=== PATIENT | female | born 1960 | race African-American/Black ===

== ENCOUNTER → 2019-06-19 | Outpatient (CLI) | payer OTHER ==
--- NOTE | 2019-06-19 15:30 | RADIOLOGY REPORT (SQ) ---
EXAM DESCRIPTION: BARIUM SWALLOW ESOPHAGUS COMPLETED DATE/TIME: 06/19/2019 9:01 am REASON FOR STUDY: R13.10 DYSPHAGIA, UNSPECIFIED R13.10 DYSPHAGIA, UNSPECIFIED COMPARISON: None. TECHNIQUE: Under fluoroscopic guidance, patient ingested effervescent granules followed by thick and thin barium. Fluoroscopic spot images and routine radiographic images acquired and stored on PACS. 12 MM BARIUM TABLET GIVEN: No, patient was unable swallow tablet. LIMITATIONS: None. FLUOROSCOPY TIME: FLUORO TIME: 2.9 minutes 7 images saved to PACS. FINDINGS: NEUROMUSCULAR COORDINATION OF SWALLOW: Aspiration was seen during the study ESOPHAGEAL MOTILITY: Normal peristalsis. No esophageal spasm. ESOPHAGEAL MUCOSA: Persistent mild narrowing of the upper esophagus. Normal mucosa without masses or ulceration. GASTRO-ESOPHAGEAL JUNCTION: No hiatal hernia. Mild gastroesophageal reflux seen. NON-GI TRACT STRUCTURES: No significant finding. OTHER: No other significant finding. IMPRESSION: PERSISTENT NARROWING OF THE UPPER ESOPHAGUS. TRACHEAL ASPIRATION IDENTIFIED. MILD INGE ROESOPHAGEAL REFLUX. RECOMMENDATION: Upper endoscopy recommended for further evaluation. COMMENT: None Quality ID 145: Final reports for procedures using fluoroscopy that document radiation exposure dillon miguel, or exposure time and number of fluorographic images (if radiation exposure indices are not avail able) TECHNICAL DOCUMENTATION: JOB ID: [id number] [employer]- All Rights Reserved Reading location - IP/workstation name: [email or web address] [email or web address]
== END ==
LOC: RAD 08:20
PROVIDERS: ATTEND Internal Medicine Gastroenterology
DX: K21.9 Gastro-esophageal reflux disease without esophagitis (principal); R13.10 Dysphagia, unspecified
CPT/HCPCS: 74220

== ENCOUNTER → 2019-07-25 | Outpatient (CLI) | payer OTHER ==
--- NOTE | 2019-07-25 14:00 | WOMENS IMAGING REPORT ---
EXAM DESCRIPTION: BILAT SCREENING MAMMO W/CAD COMPLETED DATE/TIME: 07/25/2019 12:07 pm REASON FOR STUDY: Z12.31 SCREENING MAMMO Z12.31 ENCNTR SCREEN MAMMOGRAM FOR MALIGNANT NEOPLASM OF B RE COMPARISON: 12/03/2015 and 01/21/2010. EXAM PARAMETERS: Standard craniocaudal and mediolateral oblique views of each breast recorded using digital acquisition. Read with the assistance of CAD. .[facility] - [employer] Mechanic Supervisor Version 9.2 LIMITATIONS: None. FINDINGS: No suspicious masses, suspicious calcifications or architectural distortion. No areas of c oncern. IMPRESSION: Negative MAMMOGRAM. BIRADS 1 BREAST DENSITY: b. There are scattered areas of fibroglandular density. BIRAD: ASSESSMENT: 1 NEGATIVE RECOMMENDATION: ROUTINE SCREENING COMMENT: The patient has been notified of the results by letter per MQSA requirements. Additional no tification policies are in place for contacting patient with suspicious or incomplete findings. Quality ID #225: The [employer] recommends an annual screening mammogram for women aged 40 years or over. This facility utilizes a reminder system to ensure that all patients receive reminder letters, and/or direct phone calls for appointments. This includes reminders for routine scr eening mammograms, diagnostic mammograms, or other Breast Imaging Interventions when appropriate. Th is patient will be placed in the appropriate reminder system. TECHNICAL DOCUMENTATION: FINDING NUMBER: (1) ASSESSMENT: (1) JOB ID: [id number] [employer]- All Rights Reserved Reading location - IP/workstation name: [email or web address]
== END ==
LOC: WI 11:40
PROVIDERS: ATTEND Internal Medicine Geriatric Medicine
DX: Z12.31 Encounter for screening mammogram for malignant neoplasm of breast (principal)
CPT/HCPCS: 77067

== ENCOUNTER → 2019-08-26 | Outpatient (CLI) | payer OTHER ==
--- NOTE | 2019-08-26 13:18 | RADIOLOGY REPORT (SQ) ---
EXAM DESCRIPTION: CT SOFT TISSUE NECK WITH COMPLETED DATE/TIME: 08/26/2019 11:08 am REASON FOR STUDY: R13.12 DYSPHAGIA, OROPHARYNGEAL PHASE R13.12 DYSPHAGIA, OROPHARYNGEAL PHASE COMPARISON: None. TECHNIQUE: Post IV contrasted scanning from skull base through lung apices with review of bone, soft tissue and lung windows. Reconstructed coronal and sagittal MPR images reviewed. All images stored on PACS. All CT scanners at this facility use dose modulation, iterative reconstruction, and/or weight based d osing when appropriate to reduce radiation dose to as low as reasonably achievable (ALARA). [facility]: Dose Right [facility]: CareDose [facility]: Dose Right [facility]: Teradose 4D [facility]: [place] CONTRAST TYPE AND DOSE: contrast/concentration: Isovue 350.00 mg/ml; Total Contrast Delivered: 75.0 ml; Total Saline Delivered: 55.0 ml RENAL FUNCTION: Creatinine 0.7 RADIATION DOSE: 19.4 mGy . LIMITATIONS: None. FINDINGS: A 2.6 cm craniocaudad by 2 cm AP x 1.5 cm transverse left supraglottic laryngeal mass is p resent along the left epiglottis and aryepiglottic fold. This is best shown on axial images 37-47. Extension from the superior tip of the epiglottis down to the left arytenoid cartilage is best shown on sagittal image 53. This tumor crosses midline on coronal image 67. Tumor extends inferiorly down to involve at least the laryngeal vestibule. Abnormal contrast thick e nhancement extends down to the arytenoid cartilage on the left. Mild supraglottic airway narrowing. SKULL BASE: Inferior brain parenchyma in the field of view is unremarkable MAJOR SALIVARY GLANDS: No solid or cystic masses. No inflammatory changes. LYMPHADENOPATHY: No adenopathy. There are small (non enlarged by size) cervical lymph nodes as follo ws: 6 mm short axis, submandibular triangle axial image 44 5 mm short axis in the carotid space axial image 39 6 mm short axis left posterior triangle axial image 44 LARYNX/CORDS: As above VASCULAR STRUCTURES: The major vessels are patent. LUNG APICES: Clear. BONES: Multilevel cervical foraminal narrowing from facet and uncovertebral hypertrophy THYROID: Normal size. No masses. PARANASAL SINUSES: Clear. OTHER: No other significant finding. IMPRESSION: 2.6 x 2 x 1.5 cm left supraglottic laryngeal mass. Mild supraglottic airway narrowing. No bulky cervical adenopathy. TECHNICAL DOCUMENTATION: JOB ID: [id number] Quality ID # [id number]: Final reports with documentation of one or more dose reduction techniques (e.g., Au tomated exposure control, adjustment of the mA and/or kV according to patient size, use of iterative reconstruction technique) 2010 [employer]- All Rights Reserved Reading location - IP/workstation name: [email or web address]
== END ==
LOC: RAD 10:07
PROVIDERS: ATTEND Otolaryngology
DX: R13.12 Dysphagia, oropharyngeal phase (principal)
CPT/HCPCS: 70491; 82565

== ENCOUNTER 2019-08-30 05:13 | Day surgery (SDC) | payer OTHER ==
[2019-08-28 10:44] LABS: ABSOLUTE EOSINOPHILS # (AUTO) 0.1 10^3/uL (0.0-0.6); ABSOLUTE LYMPHOCYTES (AUTO) 1.6 10^3/uL (0.5-4.7); ABSOLUTE MONOCYTES (AUTO) 0.5 10^3/uL (0.1-1.4); ABSOLUTE NEUT (AUTO) 2.5 10^3/uL (1.7-8.2); BASOPHILS % (AUTO) 0.7 % (0-2); EOSINOPHILS % (AUTO) 2.4 % (0-6); HEMATOCRIT 39.6 % (36.0-47.0); HEMOGLOBIN 12.8 g/dL (12.0-15.5); LYMPHOCYTES % (AUTO) 34.3 % (13-45); MEAN CORPUSCULAR HEMOGLOBIN 25.1 pg (27.0-33.4); MEAN CORPUSCULAR HGB CONC 32.2 g/dL (32.0-36.0); MEAN CORPUSCULAR VOLUME 78 fl (80-97); MONOCYTES % (AUTO) 10.8 % (3-13); PLATELET COUNT 111 10^3/uL (150-450); RED BLOOD COUNT 5.09 10^6/uL (3.72-5.28); RED CELL DISTRIBUTION WIDTH 16.8 % (11.5-14.0); SEGMENTED NEUTROPHILS % (AUTO) 51.8 % (42-78); TOTAL CELLS COUNTED % (AUTO) 100 %; WHITE BLOOD COUNT 4.7 10^3/uL (4.0-10.5)
[2019-08-28 11:15] LABS: ANION GAP 12 (5-19); BLOOD UREA NITROGEN 15 mg/dL (7-20); CALCIUM 9.3 mg/dL (8.4-10.2); CARBON DIOXIDE 31 mmol/L (22-30); CHLORIDE 96 mmol/L (98-107); GLUCOSE 99 mg/dL (75-110); POTASSIUM 4.5 mmol/L (3.6-5.0)
[~2019-08-30 05:13] MED LIST: CEFAZOLIN SODIUM 2 GM in DEXTROSE 5%-WATER 100 ML IV PRN; LACTATED RINGERS 1000 ML IV PRN; LIDOCAINE 0.5% INJ-PF (5 MG/ML) 50 ML SDV SUBCUT PRN
[2019-08-30] MEDS ORDERED: PROPOFOL INJ 200 MG/20 ML VIAL IV ONE (06:22)
[2019-08-30] MEDS ORDERED: FENTANYL CITRATE INJ/PF 100 MCG/2 ML AMPUL ONE (06:22)
[2019-08-30] MEDS ORDERED: MIDAZOLAM 2 MG/2 ML INJ ONE (06:22)
[2019-08-30] MEDS ORDERED: ONDANSETRON HCL INJ/PF 4 MG/2 ML SDV ONE (06:22)
[2019-08-30] MEDS ORDERED: DEXAMETHASONE SOD PHOSPHATE INJ 4 MG/1 ML VIAL ONE (06:22)
[2019-08-30] MEDS ORDERED: LIDOCAINE 0.5% INJ-PF (5 MG/ML) 50 ML SDV ONE (06:34)
--- NOTE | 2019-08-30 06:51 | EKG REPORT ---
SEVERITY:- NORMAL ECG - SINUS RHYTHM : Confirmed by: Silvano Kang MD 30-Aug-2019 06:50:37
[2019-08-30] MEDS ORDERED: COCAINE HCL 4% TOPICAL SOLN 4 ML ONE (07:05)
[2019-08-30] MEDS ORDERED: TRIAMCINOLONE ACETONIDE INJ 40 MG/1 ML VIAL ONE (07:05)
[2019-08-30] MEDS ORDERED: OXYMETAZOLINE HCL 0.05% NASAL SPRAY 15 ML BOTTLE ONE (07:05)
[2019-08-30] MEDS ORDERED: IPRATROPIUM/ALBUTEROL 0.5-2.5 MG/3 ML AMPUL NEB ONE (07:22)
[2019-08-30] MEDS ORDERED: LIDOCAINE 2% INJ (20 MG/ML) 20 ML MDV ONE (07:25)
[2019-08-30] MEDS ORDERED: ALBUTEROL SULFATE 0.083% NEB 2.5 MG/3 ML AMPUL NEB ONE (07:25)
[2019-08-30] MEDS ORDERED: LABETALOL HCL INJ 20 MG/4 ML DISP.SYRIN IV ONE (08:10)
[2019-08-30] MEDS ORDERED: FENTANYL CITRATE INJ/PF 100 MCG/2 ML AMPUL IV PRN ×3 (08:16)
[2019-08-30] MEDS ORDERED: DIPHENHYDRAMINE HCL 50 MG/ML VIAL IV PRN (08:16)
[2019-08-30] MEDS ORDERED: MEPERIDINE HCL/PF INJ 25 MG/1 ML DISP.SYRIN IV PRN (08:16)
[2019-08-30] MEDS ORDERED: PROMETHAZINE HCL INJ 25 MG/1 ML VIAL IV PRN ×2 (08:16)
[2019-08-30] MEDS ORDERED: ONDANSETRON HCL INJ/PF 4 MG/2 ML SDV IV PRN ×2 (08:16→09:32)
--- NOTE | 2019-08-30 09:46 | Operative Report ---
Operative Report-[facility] Operative Report: Date: 30 August 2019 History: Patient with a history of dysphagia was evaluated in clinic and found to have a ulcerative supraglottic mass mainly involving the epiglottis and aryepiglottic fold on the left side. Presents for a MicroDirect laryngoscopy and biopsy of the supraglottic mass. Informed consent was obtained from the patient Preoperative Diagnosis: Supraglottic mass Postoperative Diagnosis: Same as above Procedure: 1. Micro Direct Laryngoscopy 2. Biopsy of epiglottis, aryepiglottic fold and base of tongue Surgeon: All Javed MD, FACS, [facility] Khanh: NEAL Description of the procedure: After receiving informed consent, the patient was brought to the operating room and placed supine on the operating room table. After successful induction and intubation by anesthesia, the operating room table was turned 90. A head rape was placed. The patient was placed in a sniffing position. A mouthguard was placed to protect the dentition. An operating laryngoscope was placed atraumatically into the laryngeal inlet. The laryngoscope was then placed into suspension. The microscope was brought into the field and the larynx was visualized. An ulcerative mass was noted involving the lingual surface of the epiglottis, left area epiglottic fold, vallecula on the left and extending to the lower portion of the left base of tongue. The mass did extend to the superior portion of the laryngeal surface of the epiglottis on the left side. Cottonoids soaked in 4% cocaine were placed into the laryngeal inlet to cover the vocal cords, prior to initiation of the procedure. Biopsies were taken of the epiglottis, aryepiglottic fold and base of tongue A cottonoid soaked in 4% cocaine was placed over the excision site. Hemostasis was obtained. The patient was taken out of suspension and the laryngoscope removed. The patient was then given back to anesthesia who successfully extubated the patient without any complications. Estimated blood loss: 10 mL Fluids: 500 mL The patient tolerated the procedure well without any complications. The patient was then transported to the post anesthesia care unit in stable condition with spontaneous respirations.
[2019-08-30 10:53] VITALS: BP 129/81
[2019-08-30] MEDS ORDERED: SUCCINYLCHOLINE CHLORIDE INJ 200 MG/10 ML VIAL ONE (13:08)
--- NOTE | 2019-08-30 15:05 | EKG REPORT ---
SEVERITY:- OTHERWISE NORMAL ECG - SINUS RHYTHM : Confirmed by: Silvano Kang MD 30-Aug-2019 15:05:04
== END 2019-08-30 10:45 | disposition home or self-care (01) ==
LOC: OROUT 05:13
PROVIDERS: ATTEND Otolaryngology
DX: C13.1 Malignant neoplasm of aryepiglottic fold, hypopharyngeal aspect (principal); C01 Malignant neoplasm of base of tongue; J38.7 Other diseases of larynx; Z79.899 Other long term (current) drug therapy; F17.210 Nicotine dependence, cigarettes, uncomplicated; R13.12 Dysphagia, oropharyngeal phase; D64.89 Other specified anemias
CPT/HCPCS: 36415; 85025; 80048; 88305 ×2; 93005; 93010; 00320; 31535; J2250; J3490 ×5; J0690; J1100; J3010; J0330; J2405; J7060; J2704; J7620; 320; J3301

== ENCOUNTER → 2019-12-17 | Outpatient (CLI) | payer OTHER ==
--- NOTE | 2019-12-17 16:45 | RADIOLOGY REPORT (SQ) ---
EXAM DESCRIPTION: PET CT SKULL/THIGH COMPLETED DATE/TIME: 12/17/2019 2:58 pm REASON FOR STUDY: THROAT CA (C32.1) C32.1 MALIGNANT NEOPLASM OF SUPRAGLOTTIS COMPARISON: CT SOFT TISSUE NECK 08/26/2019, 10/24/2019 CT CHEST 10/24/2019 RADIONUCLIDE AND DOSE: 8.9 mCi F18 FDG The route of agent administration: Intravenous FASTING BLOOD SUGAR: 86 mg/dl CONTRAST TYPE AND DOSE: No CT contrast given. TECHNIQUE: Blood glucose level was verified. Above dose of FDG was injected intravenously. 2-D seg mented attenuation correction images were obtained from the base of the skull to the midthighs. Nonc ontrast CT images were obtained for attenuation correction and fusion with emission images. CT image s were performed without oral or intravenous contrast and are not sensitive for parenchymal lesions. A series of overlapping emission PET images were obtained. Images reviewed and manipulated at [facility] work station by the radiologist. Images stored on PACS. LIMITATIONS: None. FINDINGS: HEAD AND NECK: Patient is post laryngectomy and tracheostomy. Surgical clips post radical neck dissection. Grafting with a neopharynx surrounded by fat on axial image 30. No increased upta ke over the head or neck worrisome for recurrent malignancy. No adenopathy. CHEST: Tracheostomy in good positioning. No increased metabolic activity at the thoracic inlet. No mediastinal or lung lesions. ABDOMEN AND PELVIS: No areas of abnormal metabolic activity in the abdomen or pelvis. Expected physi ologic activity is present in the genitourinary system and bowel. Non metabolic hepatic cysts, the l argest is 3.3 cm in size posterior right lobe liver. Stones in the gallbladder. G-tube in good posi tioning. PROXIMAL LOWER EXTREMITIES: There is postsurgical change along the left quadriceps muscle, with surgi simi clips and a small seroma on axial images 213-225. No increased metabolic activity in this area. BONES: No abnormal metabolic activity in the visualized skeleton. OTHER: No other significant findings. IMPRESSION: No PET-CT evidence of recurrent laryngeal neoplasm or diffuse widespread metastatic dise ase. TECHNICAL DOCUMENTATION: JOB ID: [id number] 2010 [employer]- All Rights Reserved Reading location - IP/workstation name: [email or web address]
== END ==
LOC: RAD 12:59
PROVIDERS: ATTEND Internal Medicine Hematology & Oncology
DX: C32.1 Malignant neoplasm of supraglottis (principal)
CPT/HCPCS: 78815; A9552

== ENCOUNTER 2020-01-09 08:00 | Day surgery (SDC) | payer OTHER ==
[~2020-01-09 08:00] MED LIST changes: +ACETAMINOPHEN 325 MG TABLET PO PRN; +CEFAZOLIN 1 GM/D5W RTU 1 GM/50 ML RTUPB IV PRN; -CEFAZOLIN SODIUM 2 GM in DEXTROSE 5%-WATER 100 ML IV PRN; -LACTATED RINGERS 1000 ML IV PRN; -LIDOCAINE 0.5% INJ-PF (5 MG/ML) 50 ML SDV SUBCUT PRN
[2020-01-09] MEDS ORDERED: LIDOCAINE 0.5% INJ-PF (5 MG/ML) 50 ML SDV SUBCUT PRN (09:00)
[2020-01-09] MEDS ORDERED: LACTATED RINGERS 1000 ML IV PRN (09:00)
[2020-01-09 09:03] LABS: HEMATOCRIT 34.8 % (36.0-47.0); HEMOGLOBIN 11.4 g/dL (12.0-15.5); MEAN CORPUSCULAR HEMOGLOBIN 23.9 pg (27.0-33.4); MEAN CORPUSCULAR HGB CONC 32.8 g/dL (32.0-36.0); MEAN CORPUSCULAR VOLUME 73 fl (80-97); PLATELET COUNT 151 10^3/uL (150-450); RED BLOOD COUNT 4.76 10^6/uL (3.72-5.28); WHITE BLOOD COUNT 4.9 10^3/uL (4.0-10.5)
--- NOTE | 2020-01-09 09:29 | EKG REPORT ---
SEVERITY:- ABNORMAL ECG - SINUS RHYTHM LOW VOLTAGE IN FRONTAL LEADS NONSPECIFIC T ABNORMALITIES, DIFFUSE LEADS : Confirmed by: Juan Wilson 09-Jan-2020 09:29:36
--- NOTE | 2020-01-09 09:37 | RADIOLOGY REPORT (SQ) ---
EXAM DESCRIPTION: CHEST SINGLE VIEW IMAGES COMPLETED DATE/TIME: 01/09/2020 9:07 am REASON FOR STUDY: preop COMPARISON: Two-view chest 11/02/2015 PET-CT 12/17/2027 EXAM PARAMETERS: NUMBER OF VIEWS: One view. TECHNIQUE: Single frontal radiographic view of the chest acquired. RADIATION DOSE: NA LIMITATIONS: None. FINDINGS: LUNGS AND PLEURA: No opacities, masses or pneumothorax. No pleural effusion. MEDIASTINUM AND HILAR STRUCTURES: No masses. Contour normal. HEART AND VASCULAR STRUCTURES: Heart normal in size. Normal vasculature. BONES: No acute findings. HARDWARE: Tracheostomy tube tip upper trachea. Right and left supraclavicular surgical clips. OTHER: No other significant finding. IMPRESSION: NO ACUTE RADIOGRAPHIC FINDING IN THE CHEST. TECHNICAL DOCUMENTATION: JOB ID: [id number] 2010 [place] 1000[employer]- All Rights Reserved Reading location - IP/workstation name: [id number]
[2020-01-09] MEDS ORDERED: BUPIVACAINE HCL 0.5%-EPI 1:200000 INJ/PF 30 ML VIAL ONE (10:26)
[2020-01-09] MEDS ORDERED: CEFAZOLIN 1 GM/D5W RTU 1 GM/50 ML RTUPB IV ONE (10:27)
[2020-01-09] MEDS ORDERED: FENTANYL CITRATE INJ/PF 100 MCG/2 ML AMPUL ONE (10:33)
[2020-01-09] MEDS ORDERED: PROPOFOL INJ 200 MG/20 ML VIAL IV ONE (10:33)
[2020-01-09] MEDS ORDERED: MIDAZOLAM 2 MG/2 ML INJ ONE (10:33)
[2020-01-09] MEDS ORDERED: MEPERIDINE HCL/PF INJ 25 MG/1 ML DISP.SYRIN IV PRN (11:40)
[2020-01-09] MEDS ORDERED: FENTANYL CITRATE INJ/PF 100 MCG/2 ML AMPUL IV PRN ×3 (11:40)
[2020-01-09] MEDS ORDERED: DIPHENHYDRAMINE HCL 50 MG/ML VIAL IV PRN (11:40)
[2020-01-09] MEDS ORDERED: PROMETHAZINE HCL INJ 25 MG/1 ML VIAL IV PRN (11:40)
--- NOTE | 2020-01-09 12:18 | Operative Report ---
Nonrecallable Operative Report DATE OF SURGERY: 01/09/20 PREOPERATIVE DIAGNOSIS: Laryngeal carcinoma POSTOPERATIVE DIAGNOSIS: Laryngeal carcinoma OPERATION: Port-A-Cath placement left chest SURGEON: GEORGE OCOHA ANESTHESIA: Moderate Sedation TISSUE REMOVED OR ALTERED: None COMPLICATIONS: None ESTIMATED BLOOD LOSS: 10 cc INTRAOPERATIVE FINDINGS: See dictation PROCEDURE: Patient brought to the operating awake alert stable condition placed in the upper table supine position and given IV sedation. After appropriate timeout site verification the procedure commenced. The left chest and neck were prepped and draped in usual sterile fashion. After anesthetizing the skin underneath the left clavi using a 18-gauge needle the left subclavian vein was accessed. Through the needle a wire was placed. This was manipulated to the superior vena cava using fluoroscopy. Then using the tear-away introducer dilator placed over the wire the tract was dilated under direct vision using fluoroscopy. The catheter was then placed through the tear-away introducer confirmed good position using fluoroscopy the tear-away introducer was torn away. Skin incision was made on the left anterior chest wall transversely after anesthetizing the skin with 0.5% lidocaine. A subcutaneous pocket was made with Bovie cautery. Using the tunnel maker supplied with the kit the catheter was tunneled from the subclavian stick site to the pocket. The catheter was then sized appropriately cut and attached to the port with the supplied attachment clip. The port was then irrigated with contrast and flushed easily and it had good position using fluoroscopy. It was then irrigated with heparinized saline solution. The subcutaneous pocket was then closed with 3-0 Vicryl and subcutaneous tissue and then the skin was closed with intracuticular 4-0 Biosyn Steri-Strips completed the procedure. Estimated blood loss was less than 10 cc sponge needle counts were correct and was to the patient was then transferred recovery in stable condition no complications
--- NOTE | 2020-01-09 12:20 | Discharge Summary ---
Discharge Summary (SDC) - Discharge Final Diagnosis: Laryngeal carcinoma Date of Surgery: 01/09/20 Discharge Date: 01/09/20 Condition: Good Referrals: MARY BRISCOE MD [Primary Care Provider] - Discharge Diet: As Tolerated Discharge Activity: Activity As Tolerated Report the Following to Your Physician Immediately: Shortness of Breath - Patient needs a follow-up appointment in surgery clinic in 7 to 10 days, Increase in Pain, Unusual Bleeding
--- NOTE | 2020-01-09 12:54 | RADIOLOGY REPORT (SQ) ---
EXAM DESCRIPTION: CHEST SINGLE VIEW IMAGES COMPLETED DATE/TIME: 01/09/2020 12:35 pm REASON FOR STUDY: POST OP CATH PLACEMENT COMPARISON: PET-CT 12/17/2019 AP chest 01/09/2020 EXAM PARAMETERS: NUMBER OF VIEWS: One view. TECHNIQUE: Single frontal radiographic view of the chest acquired. RADIATION DOSE: NA LIMITATIONS: None. FINDINGS: LUNGS AND PLEURA: No opacities, masses or pneumothorax. No pleural effusion. MEDIASTINUM AND HILAR STRUCTURES: No masses. Contour normal. HEART AND VASCULAR STRUCTURES: Heart normal in size. Normal vasculature. BONES: No acute findings. Old healed left lateral rib fractures HARDWARE: New left subclavian permanent central line tip superior vena cava. Surgical clips in the s upraclavicular regions. Tracheostomy tube tip in the midtrachea OTHER: No other significant finding. IMPRESSION: No pneumothorax post left permanent central line placement with the tip in superior vena cava. TECHNICAL DOCUMENTATION: JOB ID: [id number] 2010 [employer]- All Rights Reserved Reading location - IP/workstation name: [email or web address]
--- NOTE | 2020-01-09 12:55 | RADIOLOGY REPORT (SQ) ---
EXAM DESCRIPTION: FLUORO/CV PLACEMENT IMAGES COMPLETED DATE/TIME: 01/09/2020 12:32 pm REASON FOR STUDY: PORTACATH PLACEMENT LEFT SIDE ASSISTED WITH FLUOROSCOPY IN OR C32.1 MALIGNANT SYBIL PLASM OF SUPRAGLOTTIS COMPARISON: AP chest 01/09/2020 FLUOROSCOPY TIME: 2.6 minutes 2 C-arm images images saved to PACS. TECHNIQUE: Intra-operative images acquired during surgical procedure to evaluate progress. NUMBER OF IMAGES: 2 C-arm images LIMITATIONS: None. FINDINGS: Intra procedural imaging fluoro during placement of a left-sided permanent central line. Please see the operative report for further details IMPRESSION: Intra procedural imaging and fluoro COMMENT: Quality ID 145: Final reports for procedures using fluoroscopy that document radiation exp osure indices, or exposure time and number of fluorographic images (if radiation exposure indices are not available) Please consult full operative report of the attending physician for description of the procedure. TECHNICAL DOCUMENTATION: JOB ID: [id number] 2010 [employer]- All Rights Reserved Reading location - IP/workstation name: [id number]
[2020-01-09 17:03] VITALS: BP 99/65
== END 2020-01-09 13:45 | disposition home or self-care (01) ==
LOC: OROUT 08:00
PROVIDERS: ATTEND Surgery
DX: C32.9 Malignant neoplasm of larynx, unspecified (principal); Z87.891 Personal history of nicotine dependence; Z79.899 Other long term (current) drug therapy; D64.9 Anemia, unspecified
CPT/HCPCS: 36561; 36415; 85027; 71045; 77001; 93005; 93010; C1788; Q9967; J2250; J3490; J0690; J3010; J1642; 532; J2704

== ENCOUNTER → 2020-04-21 | Outpatient (CLI) | payer OTHER ==
--- NOTE | 2020-04-21 15:09 | RADIOLOGY REPORT (SQ) ---
EXAM DESCRIPTION: PET CT SKULL/THIGH IMAGES COMPLETED DATE/TIME: 04/21/2020 1:43 pm REASON FOR STUDY: HEAD AND NECK CANCER (C32.1) C32.1 MALIGNANT NEOPLASM OF SUPRAGLOTTIS COMPARISON: 12/17/2019 RADIONUCLIDE AND DOSE: 9.6 mCi F18 FDG The route of agent administration: Intravenous FASTING BLOOD SUGAR: 85 mg/dl CONTRAST TYPE AND DOSE: No CT contrast given. TECHNIQUE: Blood glucose level was verified. Above dose of FDG was injected intravenously. 2-D seg mented attenuation correction images were obtained from the base of the skull to the midthighs. Nonc ontrast CT images were obtained for attenuation correction and fusion with emission images. CT image s were performed without oral or intravenous contrast and are not sensitive for parenchymal lesions. A series of overlapping emission PET images were obtained. Images reviewed and manipulated at [facility] work station by the radiologist. Images stored on PACS. LIMITATIONS: None. FINDINGS: HEAD AND NECK: No areas of abnormal metabolic activity in the soft tissues of the head and neck. CHEST: No areas of abnormal metabolic activity in the chest. ABDOMEN AND PELVIS: No areas of abnormal metabolic activity in the abdomen or pelvis. Expected physi ologic activity is present in the genitourinary system and bowel. PROXIMAL LOWER EXTREMITIES: No areas of abnormal metabolic activity in the soft tissues of the lower extremities. BONES: No abnormal metabolic activity in the visualized skeleton. ADDITIONAL CT FINDINGS: Status post laryngectomy and tracheostomy, radical neck dissection. Stable p osition of tracheostomy and gastrostomy. Left-sided port tip in the SVC. Small non hypermetabolic r ight pleural effusion. Gallstones. OTHER: No other significant findings. IMPRESSION: No evidence of local recurrence or metastatic disease. TECHNICAL DOCUMENTATION: JOB ID: [id number] 2010 [employer]- All Rights Reserved Reading location - IP/workstation name: [email or web address]
== END ==
LOC: RAD 08:49
PROVIDERS: ATTEND Nurse Practitioner Family
DX: C32.1 Malignant neoplasm of supraglottis (principal)
CPT/HCPCS: 78815; A9552

== ENCOUNTER 2020-05-05 20:48 | Emergency (ER) | payer OTHER ==
--- NOTE | 2020-05-06 00:45 | RADIOLOGY REPORT (SQ) ---
XR CHEST 2 VIEWS HISTORY: Shortness of breath. COMPARISON: 01/09/2020 FINDINGS: The tracheostomy tube and left central venous line are stable. The heart size is enlarged with mild central pulmonary vascular congestion. No consolidation, pleural effusion, or pneumothorax is seen. The bony structures are preserved. IMPRESSION: Mild pulmonary edema pattern, without pleural effusions or focal consolidation.
--- NOTE | 2020-05-06 01:04 | ER Document Report ---
ED General - General Chief Complaint: Other Stated Complaint: TRACH ISSUES TRAVEL OUTSIDE OF THE [place] IN LAST 30 DAYS: No - HPI Notes: 60-year-old female history of head and laryngeal cancer post chemo and radiation with chronic trach placed approximately 6 months ago presents with inability to replace trach. Patient had taken trach tube out for several hours and then when she went to put it back and she was not able to get it in. Patient feels well. Patient denies shortness of breath, discharge from trach, trauma, bleeding, fever, cough - Related Data Allergies/Adverse Reactions: No Known Allergies Allergy (Verified 08/30/19 05:40) Past Medical History - General Information source: Patient, Relative - Social History Smoking Status: Former Smoker Frequency of alcohol use: None Drug Abuse: None Family History: Reviewed & Not Pertinent, Malignancy Patient has homicidal ideation: No - Past Medical History Cardiac Medical History: Denies: Hx Coronary Artery Disease, Hx Heart Attack, Hx Hypertension Pulmonary Medical History: Denies: Hx Asthma, Hx Bronchitis, Hx COPD, Hx Pneumonia Neurological Medical History: Denies: Hx Cerebrovascular Accident, Hx Seizures Musculoskeletal Medical History: Denies Hx Arthritis Past Surgical History: Reports: Hx Tubal Ligation - Immunizations Hx Diphtheria, Pertussis, Tetanus Vaccination: Yes Review of Systems - Review of Systems Notes: REVIEW OF SYSTEMS: CONSTITUTIONAL : Denies fever, chills, or sweats. EENT: Denies recent cold/sinus symptoms, denies throat pain CARDIOVASCULAR: Denies chest pain, [place] RESPIRATORY: Denies cough, denies shortness of breath. GASTROINTESTINAL: Denies abdominal pain, nausea/vomiting. GENITOURINARY: Denies difficulty urinating, painful urination. MUSCULOSKELETAL: Denies neck pain, back pain. SKIN: Denies rash or skin lesions. HEMATOLOGIC : Denies easy bruising or bleeding. LYMPHATIC: Denies swollen, enlarged glands. NEUROLOGICAL: Denies headache, denies change in gait. PSYCHIATRIC: Denies anxiety or stress or depression. Physical Exam - Vital signs Vitals: Temp Pulse Resp BP Pulse Ox 98.2 F 98 18 119/85 97 05/05/20 22:22 05/05/20 22:22 05/05/20 22:22 05/05/20 22:22 05/05/20 22:22 - Notes Notes: PHYSICAL EXAMINATION: GENERAL: Well-appearing, well-nourished and in no acute distress. HEAD: Atraumatic, normocephalic. EYES: Pupils equal round and appropriate constriction, sclera anicteric, conjunctiva are normal. ENT: nares patent, moist mucous membranes., Tracheostomy without tracheostomy tube, healing well, no bleeding, no discharge NECK: Normal range of motion, supple without lymphadenopathy LUNGS: Breath sounds clear to auscultation bilaterally and equal. No wheezes rales or rhonchi. HEART: Regular rate and rhythm without murmurs ABDOMEN: Soft, nontender, no guarding, no masses, no CVAT EXTREMITIES: Normal range of motion, no pitting or edema. No cyanosis. NEUROLOGICAL: Awake, alert, conversing appropriately (unable to speak but nods and gestures), moves all extremities spontaneously. PSYCH: Normal mood, normal affect. SKIN: Warm, Dry, normal turgor, no rashes or lesions noted. Course - Re-evaluation Re-evalutation: 05/06/20 01:01 No signs of infection, patient asymptomatic, replaced trach tube with a size 6 Shiley and obtained chest x-ray afterward which shows mild pulmonary edema which is incidental. Patient has had no cardiac symptoms and has no shortness of breath, informed patient of results and gave copy of x-ray to follow-up with a primary doctor and stage electrician for this. Patient's vitals remained normal, ready for discharge. I gave patient and relative extensive return to ED precautions which they demonstrated understanding of. - Vital Signs Vital signs: Temp Pulse Resp BP Pulse Ox 98.2 F 98 18 119/85 97 05/05/20 22:22 05/05/20 22:22 05/05/20 22:22 05/05/20 22:22 05/05/20 22:22 Discharge - Discharge Clinical Impression: Tracheostomy complication Qualifiers: Tracheostomy complication: unspecified Qualified Code(s): J95.00 - Unspecified tracheostomy complication Disposition: HOME, SELF-CARE Additional Instructions: Follow-up tomorrow with your ENT to have your tracheostomy tube checked. You had a small amount of fluid in your lungs which could be related to an undiagnosed heart condition. You have no symptoms right now you can follow this up with the primary doctor and a stage electrician. Return to the emergency department immediately if you have shortness of breath, chest pain, body or leg swelling, fever, or any other worsening or alarming symptoms.
[2020-05-06 01:31] VITALS: BP 110/74
== END 2020-05-06 01:29 | disposition home or self-care (01) ==
LOC: ER 20:48
DX: J95.00 Unspecified tracheostomy complication (principal); Z87.891 Personal history of nicotine dependence; Z85.21 Personal history of malignant neoplasm of larynx; Z85.89 Personal history of malignant neoplasm of other organs and systems
CPT/HCPCS: 71046; 99283

== ENCOUNTER 2020-05-10 11:47 | Emergency (ER) | payer OTHER ==
[2020-05-10] MEDS ORDERED: ALBUTEROL SULFATE 0.083% NEB 2.5 MG/3 ML AMPUL NEB ONE (12:34)
--- NOTE | 2020-05-10 14:37 | RADIOLOGY REPORT (SQ) ---
EXAM DESCRIPTION: CHEST 2 VIEWS IMAGES COMPLETED DATE/TIME: 05/10/2020 2:27 pm REASON FOR STUDY: wheeze, cough COMPARISON: Chest radiograph 05/06/2020 TECHNIQUE: Frontal and lateral radiographic views of the chest acquired. NUMBER OF VIEWS: Two view. LIMITATIONS: None. FINDINGS: LUNGS AND PLEURA: No opacities, masses or pneumothorax. No pleural effusion. MEDIASTINUM AND HILAR STRUCTURES: No masses or contour abnormalities. HEART AND VASCULAR STRUCTURES: Heart upper limits of normal in size. There is decreased vascular con gestion. BONES: No acute findings. HARDWARE: Tracheostomy projects over the central tracheal air column. Left chest wall port is unchan ged. Numerous surgical clips project over the lower neck. Gastrostomy tube is partially visualized in the lower field of view. OTHER: No other significant finding. IMPRESSION: Decreased vascular congestion consistent with improving pulmonary edema. Otherwise, no significant pulmonary findings. TECHNICAL DOCUMENTATION: JOB ID: [id number] 2010 [employer]- All Rights Reserved Reading location - IP/workstation name: [email or web address]
--- NOTE | 2020-05-10 15:04 | ER Document Report ---
ED General - General Chief Complaint: Other Stated Complaint: COMPLICATIONS WITH TRACH Time Seen by Provider: 05/10/20 11:52 Primary Care Provider: SHAYNE NELSON MD [Primary Care Provider] - Follow up as needed Notes: 60-year-old female presents emergency department via EMS for difficulty with her tracheostomy. EMS, son and patient all provide history. Patient apparently had a tracheostomy placed back in October, the tracheostomy itself was replaced here 3 days ago. Patient has been having increasing discharge from her tracheostomy over the past 3 days, it was worse this morning when she woke up she states she was unable to breathe through it. She did try using saline and suction was not able to clear the partial blockage. EMS then showed up, her saturation was 95%, they used saline and suction and were able to clear it, patient was then 100% on room air after suctioning. Heart rate also went from the 120s down to the 90s. Patient admits increased cough over the past 3 days, denies any fevers or chills, denies any chest pain. Patient states she still feels like the tracheostomy is not completely unclogged. TRAVEL OUTSIDE OF THE [place] IN LAST 30 DAYS: No - Related Data Allergies/Adverse Reactions: No Known Allergies Allergy (Verified 05/10/20 11:52) Past Medical History - General Information source: Patient - Social History Smoking Status: Former Smoker Frequency of alcohol use: None Drug Abuse: None Family History: Reviewed & Not Pertinent, Malignancy Patient has homicidal ideation: No - Past Medical History Cardiac Medical History: Denies: Hx Coronary Artery Disease, Hx Heart Attack, Hx Hypertension Pulmonary Medical History: Denies: Hx Asthma, Hx Bronchitis, Hx COPD, Hx Pneumonia Neurological Medical History: Denies: Hx Cerebrovascular Accident, Hx Seizures Musculoskeletal Medical History: Denies Hx Arthritis Past Surgical History: Reports: Hx Abdominal Surgery, Hx Tubal Ligation - Immunizations Hx Diphtheria, Pertussis, Tetanus Vaccination: Yes Review of Systems - Review of Systems Constitutional: No symptoms reported EENT: See HPI - Discharge from tracheostomy. Cardiovascular: No symptoms reported Respiratory: See HPI, Cough -: Yes All other systems reviewed and negative Physical Exam - Vital signs Vitals: Temp Pulse Resp BP Pulse Ox 98.8 F 108 H 20 114/63 99 05/10/20 11:52 05/10/20 11:52 05/10/20 11:52 05/10/20 11:52 05/10/20 11:52 Interpretation: Tachycardic - Notes Notes: GENERAL: Alert, interacts well. No acute distress. HEAD: Normocephalic, atraumatic EYES: Pupils equal, round and reactive to light, extraocular movements intact. ENT: Oral mucosa moist, tongue midline. Tracheostomy in good position in the midline of the throat, yellowish discharge crusted all around it. Noisy respirations noted. Patient is mildly tachypneic. NECK: Full range of motion, supple, trachea midline. LUNGS: Transmitted upper airway sounds, expiratory wheezing. Appears mildly short of breath. HEART: Regular rate and rhythm, no murmurs, gallops, rubs. ABDOMEN: Soft, nontender, nondistended, bowel sounds present in all 4 quadrants. EXTREMITIES: Moves all 4 extremities spontaneously, no edema, radial and dorsalis pedis pulses 2/4 bilaterally. No cyanosis. NEUROLOGICAL: Alert and appropriate, no [place] valve, mouths words without difficulty. PSYCH: Normal mood, normal affect. SKIN: Warm, Dry, normal turgor. Course - Re-evaluation Re-evalutation: 05/10/20 15:02 Patient's wheezing treated with breathing treatment, patient was suctioned several times by respiratory and finally her entire tracheostomy had to be replaced, she now has 1 with a removable and you cannula that should help her to clean it more easily. Chest x-ray shows improving pulmonary edema compared to prior, no acute infection. No indication for antibiotics. Patient will be discharged home. - Vital Signs Vital signs: Temp Pulse Resp BP Pulse Ox 98.8 F 108 H 20 114/63 100 05/10/20 11:52 05/10/20 11:52 05/10/20 11:52 05/10/20 11:52 05/10/20 14:00 Discharge - Discharge Clinical Impression: Acute tracheostomy management Tracheostomy complication Qualifiers: Tracheostomy complication: other Qualified Code(s): J95.09 - Other tracheostomy complication Condition: Stable Disposition: HOME, SELF-CARE Additional Instructions: Today we cleaned the tracheostomy and then replaced it with one that has a removable any other cannula. Respiratory has instructed you on the care of this. Using the removable inner cannula should make it easier to clean. Please use the albuterol breathing treatments every 4 hours as needed for wheezing. Please return at any time if you are having difficulty breathing or cleaning the cannula yourself. Prescriptions: Albuterol Sulfate [Ventolin 0.083% Neb 2.5 mg/3 mL Ampul] 2.5 mg NEB Q4HP PRN #30 vial.neb PRN Reason: Nebulizer and Compressor [[place] Choice Nebulizer] 1 each MC ASDIR PRN #1 each PRN Reason: Albuterol Sulfate [Proventil 0.5% Neb 2.5 mg/0.5 ml Vial.neb] 2.5 mg NEB QIDP PRN #20 vial.neb PRN Reason: Referrals: SHAYNE NELSON MD [Primary Care Provider] - Follow up as needed
[2020-05-10 15:36] VITALS: BP 108/72
== END 2020-05-10 15:34 | disposition home or self-care (01) ==
LOC: ER 11:47
DX: J95.00 Unspecified tracheostomy complication (principal); Y83.3 Surgical operation with formation of external stoma as the cause of abnormal reaction of the patient, or of later complication, without mention of misadventure at the time of the procedure; R05 Cough; R06.82 Tachypnea, not elsewhere classified; R06.2 Wheezing; Z87.891 Personal history of nicotine dependence
CPT/HCPCS: 71046; 99283

== ENCOUNTER 2020-05-26 11:29 | Emergency (ER) | payer OTHER ==
--- NOTE | 2020-05-26 13:23 | ER Document Report ---
ED General - General Chief Complaint: Problem with Feeding Tube Stated Complaint: FEEDING TUBE PROBLEM Time Seen by Provider: 05/26/20 12:38 Primary Care Provider: SHAYNE NELSON MD [Primary Care Provider] - Follow up as needed TRAVEL OUTSIDE OF THE [place] IN LAST 30 DAYS: No - HPI Notes: Chief complaint: G-tube replacement History of present illness: 60-year-old female with history of laryngeal CA status post tracheostomy with G-tube in situ for all meds and feedings comes in today because her G-tube became dislodged accidentally earlier today. We note that she was in under similar circumstances about 3 weeks ago. No other complaints are expressed at this time. - Related Data Allergies/Adverse Reactions: No Known Allergies Allergy (Verified 05/10/20 11:52) Home Medications: states meds list from last admission is UTD, no changes since discharge. Past Medical History - General Information source: Patient, [facility] - Social History Smoking Status: Former Smoker Chew tobacco use (# tins/day): No Frequency of alcohol use: None Drug Abuse: None Family History: Reviewed & Not Pertinent, Malignancy Patient has homicidal ideation: No - Past Medical History Cardiac Medical History: Denies: Hx Coronary Artery Disease, Hx Heart Attack, Hx Hypertension Pulmonary Medical History: Denies: Hx Asthma, Hx Bronchitis, Hx COPD, Hx Pneumonia EENT Medical History: Reports: Other - Tracheostomy Neurological Medical History: Denies: Hx Cerebrovascular Accident, Hx Seizures Malignancy Medical History: Reports: Other - Laryngeal CA Musculoskeletal Medical History: Denies Hx Arthritis Past Surgical History: Reports: Hx Abdominal Surgery, Hx Tubal Ligation, Other - Laryngectomy and tracheostomy - Immunizations Hx Diphtheria, Pertussis, Tetanus Vaccination: Yes Review of Systems - Review of Systems Notes: Constitutional: Negative for fever. HENT: Negative for sore throat. Eyes: Negative for visual changes. Cardiovascular: Negative for chest pain. Respiratory: Negative for shortness of breath. Gastrointestinal: Negative for abdominal pain, vomiting or diarrhea. Genitourinary: Negative for dysuria. Musculoskeletal: Negative for back pain. Skin: Negative for rash. Neurological: Negative for headaches, weakness or numbness. 10 point ROS negative except as marked above and in HPI. Physical Exam - Vital signs Vitals: Temp Pulse Resp BP Pulse Ox 97.8 F 81 16 99/67 L 100 05/26/20 11:34 05/26/20 11:34 05/26/20 11:34 05/26/20 11:34 05/26/20 11:34 - Notes Notes: GENERAL: Somewhat obese male approximately stated age appearing in no acute distress. SKIN: Good turgor no rashes. HEAD: Normocephalic atraumatic. EYES: PERRLA. EOMI. Conjunctivae and sclerae clear. NECK: Tracheostomy and anterior surgical scarring present. Supple. No masses or thyromegaly. No adenopathy. Carotids 2+ without bruits. No JVD. BACK: Symmetrical without tenderness. CHEST: Respirations unlabored. Breath sounds clear and symmetrical. HEART: Regular rhythm. No murmur gallop or rub. ABDOMEN: G-tube ostium present left mid abdomen. Site appears clean with granulation tissue present. No drainage or bleeding. Soft nontender without masses, organomegaly or rebound. Bowel sounds normally active. No bruits. EXTREMITIES: No edema. No calf tenderness. Cap refill less than 1.5 seconds. Dorsalis pedis and posterior tibial pulses 3+ and symmetrical. NEUROLOGICAL: Alert and oriented x3. Nonfocal. PSYCHIATRIC: Appropriate affect. Course - Re-evaluation Re-evalutation: G-tube was replaced uneventfully and position was confirmed by injection of contrast at the bedside. Family is advised that they can resume medications and previous tube feedings immediately. Findings, clinical impression and plan of treatment have been discussed with patient/family. Understanding of current findings and recommendations has been acknowledged by them and there is agreement regarding disposition and follow-up. 05/26/20 14:48 - Vital Signs Vital signs: Temp Pulse Resp BP Pulse Ox 97.8 F 81 16 99/67 L 100 05/26/20 11:34 05/26/20 11:34 05/26/20 11:34 05/26/20 11:34 05/26/20 11:34 Procedures - Additional Procedures Gastric tube replacement Time performed: 13:15 Notes: 05/26/20 13:22 Area was and draped. A well-lubricated 16 [place] G-tube was inserted without difficulty. Balloon was inflated with 6 cc of saline. Position was secured and new dressing applied. I have ordered Omnipaque injection through the tube to verify position. Discharge - Discharge Clinical Impression: Peg tube replacement Condition: Stable Disposition: HOME, SELF-CARE Additional Instructions: Resume previous medications and feedings through PEG tube immediately. Return here for any new or worsening problems. Follow-up with Dr. Nelson as previously scheduled. Referrals: SHAYNE NELSON MD [Primary Care Provider] - Follow up as needed
[2020-05-26 15:10] VITALS: BP 106/84
--- NOTE | 2020-05-26 15:20 | RADIOLOGY REPORT (SQ) ---
EXAM DESCRIPTION: INJECT EXISTING/TUBE PLACEMENT IMAGES COMPLETED DATE/TIME: 05/26/2020 2:41 pm REASON FOR STUDY: s/p G-tube replacement COMPARISON: None. FLUOROSCOPY TIME: None required. 1 image submitted to PACS. TECHNIQUE: 30 mL of Omnipaque 330 mL of water were injected through the gastrostomy tube and a AP cristobal pine radiograph of the abdomen was obtained. The gastrostomy tube is in proper position within the l umen of the stomach. Oral contrast is noted throughout the duodenum and proximal jejunum. LIMITATIONS: None. FINDINGS: Integrated into the Technique. IMPRESSION: Proper position of the gastrostomy tube. COMMENT: Quality ID 145: Final reports for procedures using fluoroscopy that document radiation exp osure indices, or exposure time and number of fluorographic images (if radiation exposure indices are not available) TECHNICAL DOCUMENTATION: JOB ID: [id number] 2010 [employer]- All Rights Reserved Reading location - IP/workstation name: [email or web address]
== END 2020-05-26 15:10 | disposition home or self-care (01) ==
LOC: ER 11:29
PROC: 0DH63UZ Insertion of Feeding Device into Stomach, Percutaneous Approach (ICD-10-PCS; principal; 2020-05-26)
PROC: 3E0G76Z Introduction of Nutritional Substance into Upper GI, Via Natural or Artificial Opening (ICD-10-PCS; 2020-05-26)
DX: K94.23 Gastrostomy malfunction (principal); Z87.891 Personal history of nicotine dependence; Z79.899 Other long term (current) drug therapy
CPT/HCPCS: 49465; 99283

== ENCOUNTER 2020-06-20 11:58 | Emergency (ER) | payer OTHER ==
--- NOTE | 2020-06-20 12:12 | ER Document Report ---
ED Medical Screen (RME) - General Chief Complaint: Problem with Feeding Tube Stated Complaint: FEEDING TUBE ISSUES Time Seen by Provider: 06/20/20 12:06 Primary Care Provider: SHAYNE NELSON MD [Primary Care Provider] - Follow up as needed Information source: Patient Notes: Patient presents complaining of G-tube malfunction. Patient states it will not flush. Patient complains of soreness to the area around the G-tube. Patient reports dizziness. Patient denies any fever. I have greeted and performed a rapid initial assessment of this patient. A comprehensive ED assessment and evaluation of the patient, analysis of test results and completion of the medical decision making process will be conducted by additional ED providers. TRAVEL OUTSIDE OF THE [place] IN LAST 30 DAYS: No - Related Data Allergies/Adverse Reactions: No Known Allergies Allergy (Verified 06/20/20 12:04) Past Medical History - Past Medical History Cardiac Medical History: Denies: Hx Coronary Artery Disease, Hx Heart Attack, Hx Hypertension Pulmonary Medical History: Denies: Hx Asthma, Hx Bronchitis, Hx COPD, Hx Pneumonia Neurological Medical History: Denies: Hx Cerebrovascular Accident, Hx Seizures Musculoskeltal Medical History: Denies Hx Arthritis Past Surgical History: Reports: Hx Abdominal Surgery, Hx Tubal Ligation, Other - Laryngectomy and tracheostomy - Immunizations Hx Diphtheria, Pertussis, Tetanus Vaccination: Yes Physical Exam - Vital signs Vitals: Temp Pulse Resp BP Pulse Ox 98.4 F 102 H 18 130/77 H 100 06/20/20 12:03 06/20/20 12:03 06/20/20 12:03 06/20/20 12:03 06/20/20 12:03 - General General appearance: Appears well Notes: Tenderness around G-tube site Course - Vital Signs Vital signs: Temp Pulse Resp BP Pulse Ox 98.4 F 102 H 18 130/77 H 100 06/20/20 12:03 06/20/20 12:03 06/20/20 12:03 06/20/20 12:03 06/20/20 12:03 Doctor's Discharge - Discharge Referrals: SHAYNE NELSON MD [Primary Care Provider] - Follow up as needed
[2020-06-20 13:09] LABS: ABSOLUTE EOSINOPHILS # (AUTO) 0.1 10^3/uL (0.0-0.6); ABSOLUTE LYMPHOCYTES (AUTO) 0.8 10^3/uL (0.5-4.7); ABSOLUTE MONOCYTES (AUTO) 0.6 10^3/uL (0.1-1.4); ABSOLUTE NEUT (AUTO) 1.8 10^3/uL (1.7-8.2); BASOPHILS % (AUTO) 1.3 % (0-2); HEMOGLOBIN 12.1 g/dL (12.0-15.5); LYMPHOCYTES % (AUTO) 24.8 % (13-45); MEAN CORPUSCULAR HEMOGLOBIN 25.1 pg (27.0-33.4); MEAN CORPUSCULAR HGB CONC 31.9 g/dL (32.0-36.0); MEAN CORPUSCULAR VOLUME 79 fl (80-97); MONOCYTES % (AUTO) 17.1 % (3-13); PLATELET COUNT 110 10^3/uL (150-450); RED BLOOD COUNT 4.83 10^6/uL (3.72-5.28); RED CELL DISTRIBUTION WIDTH 14.1 % (11.5-14.0); SEGMENTED NEUTROPHILS % (AUTO) 54.8 % (42-78); TOTAL CELLS COUNTED % (AUTO) 100 %; WHITE BLOOD COUNT 3.4 10^3/uL (4.0-10.5)
[2020-06-20 13:33] LABS: ALBUMIN 4.4 g/dL (3.5-5.0); ALKALINE PHOSPHATASE 129 U/L (38-126); ANION GAP 11 (5-19); ASPARTATE AMINO TRANSFERASE 34 U/L (14-36); BILIRUBIN,DIRECT 0.4 mg/dL (0.0-0.4); BILIRUBIN,TOTAL 0.8 mg/dL (0.2-1.3); BLOOD UREA NITROGEN 14 mg/dL (7-20); CALCIUM 9.7 mg/dL (8.4-10.2); CARBON DIOXIDE 29 mmol/L (22-30); CHLORIDE 100 mmol/L (98-107); GLUCOSE 104 mg/dL (75-110); POTASSIUM 4.2 mmol/L (3.6-5.0); TOTAL PROTEIN 7.6 g/dL (6.3-8.2)
[2020-06-20 13:37] LABS: APPEARANCE,URINE SLIGHTLY-CLOUDY; BILIRUBIN,URINE NEGATIVE (NEGATIVE); COLOR,URINE AMBER; GLUCOSE, URINE NEGATIVE (NEGATIVE); KETONES,URINE NEGATIVE (NEGATIVE); LEUKOCYTE ESTERASE,URINE LARGE (NEGATIVE); NITRITE,URINE NEGATIVE (NEGATIVE); PROTEIN,URINE 30 mg/dL (NEGATIVE); URINE SPECIFIC GRAVITY 1.017; UROBILINOGEN,URINE NEGATIVE mg/dL (<2.0)
--- NOTE | 2020-06-20 14:11 | RADIOLOGY REPORT (SQ) ---
EXAM DESCRIPTION: INJECT EXISTING/TUBE PLACEMENT IMAGES COMPLETED DATE/TIME: 06/20/2020 1:24 pm REASON FOR STUDY: GTUBE COMPARISON: KUB 05/26/2020 FLUOROSCOPY TIME: None required 1 Images saved to PACS LIMITATIONS: None. PROCEDURE: 50 mL of Gastrografin was injected through the gastrostomy tube and an AP supine radiogra ph of the abdomen was obtained. FINDINGS: The gastrostomy tube is in proper position within the lumen of the stomach. Oral contrast is noted throughout the duodenum and proximal jejunum. IMPRESSION: Proper position of the gastrostomy tube. COMMENT: PQRS 6045F: Fluoroscopy time of the procedure is documented in the report. TECHNICAL DOCUMENTATION: JOB ID: [id number] 2010 [employer]- All Rights Reserved Reading location - IP/workstation name: [email or web address]
--- NOTE | 2020-06-20 15:09 | ER Document Report ---
Entered by CHAS WHITTINGTON SCRIBE 06/20/20 1253 Acting as scribe for:NIKKI STATON MD ED GI/ - General Chief Complaint: Problem with Feeding Tube Stated Complaint: FEEDING TUBE ISSUES Time Seen by Provider: 06/20/20 12:06 Primary Care Provider: SHAYNE NELSON MD [Primary Care Provider] - Follow up as needed Mode of Arrival: Ambulatory Information source: Patient Notes: This 60 year old female patient presents to the emergency department today with complaints of her feeding tube not working properly. Patient reports that she p uts milk and food through her feeding tube. She has had this particular feeding tube for 3 months. She reports that she has been unable to use this feeding tube for the last three weeks. She has been eating soup and mashed potatoes without a problem. TRAVEL OUTSIDE OF THE [place] IN LAST 30 DAYS: No - Related Data Allergies/Adverse Reactions: No Known Allergies Allergy (Verified 06/20/20 12:04) Past Medical History - General Information source: Patient - Social History Smoking Status: Former Smoker Cigarette use (# per day): No Frequency of alcohol use: None Drug Abuse: None Lives with: Family Family History: Reviewed & Not Pertinent, Malignancy Patient has homicidal ideation: No Past Surgical History: Reports: Hx Abdominal Surgery, Hx Tubal Ligation, Other - Laryngectomy and tracheostomy - Immunizations Hx Diphtheria, Pertussis, Tetanus Vaccination: Yes Review of Systems - Review of Systems Constitutional: No symptoms reported EENT: No symptoms reported Cardiovascular: No symptoms reported Respiratory: No symptoms reported Gastrointestinal: See HPI, Other - feeding tube clogged Genitourinary: No symptoms reported Female Genitourinary: No symptoms reported Musculoskeletal: No symptoms reported Skin: No symptoms reported Hematologic/Lymphatic: No symptoms reported Neurological/Psychological: No symptoms reported -: Yes All other systems reviewed and negative Physical Exam - Vital signs Vitals: Temp Pulse Resp BP Pulse Ox 98.4 F 102 H 18 130/77 H 100 06/20/20 12:03 06/20/20 12:03 06/20/20 12:03 06/20/20 12:03 06/20/20 12:03 - Notes Notes: Physical Exam: General: Alert, appears well. HEENT: Normocephalic. Atraumatic. PERRL. Extraocular movements intact. Oropharynx clear. Neck: Supple. Non-tender. Respiratory: No respiratory distress. Clear and equal breath sounds bilaterally. Cardiovascular: Regular rate and rhythm. Abdominal: Feeding tube in place. Flushes without any resistance. No distension. Normal Bowel Sounds. Back: No gross abnormalities. Extremities: Moves all four extremities. Upper extremities: Normal inspection. Normal ROM. Lower extremities: Normal inspection. No edema. Normal ROM. Neurological: Normal cognition. AAOx4. Normal speech. Psychological: Normal affect. Normal Mood. Skin: Warm. Dry. Normal color. Course - Re-evaluation Re-evalutation: 06/20/20 15:01 Patient in no distress. - Vital Signs Vital signs: Temp Pulse Resp BP Pulse Ox 98.4 F 102 H 18 130/77 H 100 06/20/20 12:03 06/20/20 12:03 06/20/20 12:03 06/20/20 12:03 06/20/20 12:03 06/20/20 15:02 Stable. - Laboratory Result Diagrams: 06/20/20 12:36 06/20/20 12:36 Laboratory results interpreted by me: 06/20/20 06/20/20 06/20/20 12:36 12:36 13:10 WBC 3.4 L MCV 79 L MCH 25.1 L MCHC 31.9 L RDW 14.1 H Plt Count 110 L [place] % (Auto) 17.1 H Alkaline Phosphatase 129 H Urine Protein 30 H Urine Blood SMALL H Ur Leukocyte Esterase LARGE H Laboratory results unremarkable except for large leukocyte esterase in the urine with a small amount of blood in urine. 06/20/20 15:04 Patient reports she has no signs and symptoms of urinary tract infection. I explained the patient will do a urine drug amine urine culture on her urinalysis and if positive we will get in touch with her with antibiotic recommendations. - Diagnostic Test Radiology reviewed: Image reviewed, Reports reviewed Radiology results interpreted by me: 06/20/20 15:04 KUB with Gastrografin instillation into the G-tube shows that the G-tube placement is a within the stomach without any extravasation of contrast. Procedures - Additional Procedures Gastric tube replacement Additional Procedures: Gastric tube replacement - Gastric tube replacement was found to not be necessary inasmuch as we were able to flush the G-tube with Pepsi-Cola and then water. There was normal flow of ins of aspiration as well as G-tube after the flushing. Then there was confirmation with a Gastrografin instillation into the tube with a KUB showing that the tube placement is in the correct position and no extravasation of any GI contrast material. Discharge - Discharge Clinical Impression: Malfunction of gastrostomy tube Condition: Stable Disposition: HOME, SELF-CARE Additional Instructions: GI tube appears to be in the normal position intraluminal inside the stomach. You may begin using your GI PEG tube again. Referrals: SHAYNE NELSON MD [Primary Care Provider] - Follow up as needed I personally performed the services described in the documentation, reviewed and edited the documentation which was dictated to the scribe in my presence, and it accurately records my words and actions.
[2020-06-20 15:46] VITALS: BP 132/79
--- NOTE | 2020-06-22 02:34 | EKG REPORT ---
SEVERITY:- NORMAL ECG - SINUS RHYTHM : Confirmed by: Mehul Hannah MD 22-Jun-2020 02:33:28
== END 2020-06-20 15:15 | disposition home or self-care (01) ==
LOC: ER 11:58
DX: K94.23 Gastrostomy malfunction (principal)
CPT/HCPCS: 36415; 49465; 80053; 81001; 85025; 93005; 93010; 99285

== ENCOUNTER 2020-09-07 12:43 | Emergency (ER) | payer OTHER ==
[2020-09-07 13:47] LABS: HEMATOCRIT 29.8 % (36.0-47.0); HEMOGLOBIN 9.6 g/dL (12.0-15.5); MEAN CORPUSCULAR HGB CONC 32.2 g/dL (32.0-36.0); MEAN CORPUSCULAR VOLUME 78 fl (80-97); PLATELET COUNT 161 10^3/uL (150-450); RED BLOOD COUNT 3.84 10^6/uL (3.72-5.28); WHITE BLOOD COUNT 4.2 10^3/uL (4.0-10.5)
[2020-09-07 13:56] LABS: ALBUMIN 4.1 g/dL (3.5-5.0); ALKALINE PHOSPHATASE 71 U/L (38-126); ANION GAP 12 (5-19); ASPARTATE AMINO TRANSFERASE 28 U/L (14-36); BILIRUBIN,DIRECT 0.4 mg/dL (0.0-0.4); BILIRUBIN,TOTAL 0.8 mg/dL (0.2-1.3); BLOOD UREA NITROGEN 34 mg/dL (7-20); CARBON DIOXIDE 32 mmol/L (22-30); CHLORIDE 99 mmol/L (98-107); GLUCOSE 131 mg/dL (75-110); POTASSIUM 3.2 mmol/L (3.6-5.0); TOTAL PROTEIN 7.3 g/dL (6.3-8.2)
[2020-09-07 13:58] LABS: CREATINE KINASE < 20 U/L (30-135)
[2020-09-07 14:04] LABS: CREATINE KINASE MB 0.51 ng/mL (<4.55)
--- NOTE | 2020-09-07 14:08 | EKG REPORT ---
SEVERITY:- ABNORMAL ECG - SINUS RHYTHM BORDERLINE RIGHT AXIS DEVIATION NONSPECIFIC T ABNORMALITIES, ANT-LAT LEADS : Confirmed by: Mehul Hannah MD 07-Sep-2020 14:07:41
[2020-09-07 14:09] LABS: TROPONIN I 0.056 ng/mL
[2020-09-07] MEDS ORDERED: NORMAL SALINE 1000 ML 1,000 ML IV ONE (14:12)
--- NOTE | 2020-09-07 14:12 | ER Document Report ---
ED Medical Screen (RME) - General Chief Complaint: Weakness Stated Complaint: WEAKNESS Time Seen by Provider: 09/07/20 14:10 Primary Care Provider: SHAYNE NELSON MD [Primary Care Provider] - Follow up as needed Mode of Arrival: Medic Information source: Patient Notes: 60-year-old female presented to ED for no appetite and tired. According family she has been weak and not eating. They also states she has a history of neck and throat cancer in remission. Patient states she does not know where her cancer was but she knows she had cancer she is nonverbal but she is able to spot speak without making noise. She is also able to write some. She states she d oes not really feel weak just very tired. She states she tries to eat but she just has no appetite. She does have an elevated troponin EKG was normal. She will be seen by another provider. I have greeted and performed a rapid initial assessment of this patient. A comprehensive ED assessment and evaluation of the patient, analysis of test results and completion of medical decision making process will be conducted by an additional ED providers. TRAVEL OUTSIDE OF THE [place] IN LAST 30 DAYS: No - Related Data Allergies/Adverse Reactions: No Known Allergies Allergy (Verified 06/20/20 12:04) Past Medical History - Past Medical History Cardiac Medical History: Denies: Hx Coronary Artery Disease, Hx Heart Attack, Hx Hypertension Pulmonary Medical History: Denies: Hx Asthma, Hx Bronchitis, Hx COPD, Hx Pneumonia Neurological Medical History: Denies: Hx Cerebrovascular Accident, Hx Seizures Musculoskeltal Medical History: Denies Hx Arthritis Past Surgical History: Reports: Hx Abdominal Surgery, Hx Tubal Ligation, Other - Laryngectomy and tracheostomy - Immunizations Hx Diphtheria, Pertussis, Tetanus Vaccination: Yes Physical Exam - Vital signs Vitals: Temp Pulse Resp BP Pulse Ox 97.6 F 82 16 99/67 L 94 09/07/20 13:07 09/07/20 13:07 09/07/20 13:07 09/07/20 13:07 09/07/20 13:07 Course - Vital Signs Vital signs: Temp Pulse Resp BP Pulse Ox 97.6 F 82 13 104/70 97 09/07/20 13:07 09/07/20 13:07 09/07/20 14:01 09/07/20 14:01 09/07/20 14:01 - Laboratory Result Diagrams: 09/07/20 13:11 09/07/20 13:11 Laboratory results interpreted by me: 09/07/20 13:11 Potassium 3.2 L Carbon Dioxide 32 H BUN 34 H Glucose 131 H Creatine Kinase < 20 L Doctor's Discharge - Discharge Referrals: SHAYNE NELSON MD [Primary Care Provider] - Follow up as needed
[2020-09-07 14:16] LABS: ABSOLUTE LYMPHOCYTES# (MANUAL) 0.9 10^3/uL (0.5-4.7); ABSOLUTE MONOCYTES # (MANUAL) 0.3 10^3/uL (0.1-1.4); BASOPHILS % (MANUAL) 0 % (0-2); EOSINOPHILS % (MANUAL) 2 % (0-6); LYMPHOCYTES % (MANUAL) 21 % (13-45); MONOCYTES % (MANUAL) 6 % (3-13); NUCLEATED RED BLOOD CELLS 1 /100 WBC (0); PLATELET COMMENT ADEQUATE; SEGMENTED NEUTROPHILS % (MAN) 71 % (42-78); TOTAL CELLS COUNTED 100
[2020-09-07 14:17] LABS: ANISOCYTOSIS 2+
[2020-09-07 14:18] LABS: HYPOCHROMASIA 1+; POIKILOCYTOSIS 1+; TARGET CELLS 1+
[2020-09-07 16:23] LABS: APPEARANCE,URINE SLIGHTLY-CLOUDY; BILIRUBIN,URINE NEGATIVE (NEGATIVE); COLOR,URINE AMBER; GLUCOSE, URINE NEGATIVE (NEGATIVE); KETONES,URINE 20 mg/dL (NEGATIVE); LEUKOCYTE ESTERASE,URINE SMALL (NEGATIVE); NITRITE,URINE NEGATIVE (NEGATIVE); PROTEIN,URINE 30 mg/dL (NEGATIVE); URINE SPECIFIC GRAVITY 1.023
--- NOTE | 2020-09-07 18:23 | ER Document Report ---
ED Dizziness/Weakness - General Chief Complaint: Weakness Stated Complaint: WEAKNESS Time Seen by Provider: 09/07/20 14:10 Primary Care Provider: SHAYNE NELSON MD [Primary Care Provider] - Follow up as needed Mode of Arrival: Medic Notes: This 60-year-old woman presents to the emergency department history of throat cancer and recently poor oral intake as well as increased weakness. Her son notes that she and refused to eat soup and was concerned that she was getting dehydrated. Patient has a feeding tube which is not being used presently. Patient is alert and responsive and not wanting to be in the emergency department. She states she is not sure why she is here. He denies pain with worsening symptoms of weakness. TRAVEL OUTSIDE OF THE [place] IN LAST 30 DAYS: No - Related Data Allergies/Adverse Reactions: No Known Allergies Allergy (Verified 06/20/20 12:04) Past Medical History - General Information source: Patient - Social History Smoking Status: Former Smoker Family History: Reviewed & Not Pertinent, Malignancy - Past Medical History Cardiac Medical History: Denies: Hx Coronary Artery Disease, Hx Heart Attack, Hx Hypertension Pulmonary Medical History: Denies: Hx Asthma, Hx Bronchitis, Hx COPD, Hx Pneumonia Neurological Medical History: Denies: Hx Cerebrovascular Accident, Hx Seizures Musculoskeletal Medical History: Denies Hx Arthritis Past Surgical History: Reports: Hx Abdominal Surgery, Hx Tubal Ligation, Other - Laryngectomy and tracheostomy - Immunizations Hx Diphtheria, Pertussis, Tetanus Vaccination: Yes Review of Systems - Review of Systems Notes: Constitutional: Negative for fever. HENT: Negative for sore throat. Eyes: Negative for visual changes. Cardiovascular: Negative for chest pain. Respiratory: Negative for shortness of breath. Gastrointestinal: See HPI Genitourinary: Negative for dysuria. Musculoskeletal: Negative for back pain. Skin: Negative for rash. Neurological: Negative for headaches, weakness or numbness. 10 point ROS negative except as marked above and in HPI. Physical Exam - Vital signs Vitals: Temp Pulse Resp BP Pulse Ox 97.6 F 82 16 99/67 L 94 09/07/20 13:07 09/07/20 13:07 09/07/20 13:07 09/07/20 13:07 09/07/20 13:07 - Notes Notes: PHYSICAL EXAMINATION: Physical Exam: General: Chronically ill-appearing 60-year-old woman no acute distress HEENT: NC/AT, pupils equal round and reactive to light, MM moist,nares clear, oropharynx clear, airway patent Neck: supple, no adenopathy, no masses. Good range of motion Lungs: clear, no wheezing, no rales no rhonchi CVS: Regular rate and rhythm no murmur gallop or rub Abdomen: Soft, active, nontender, + left upper quadrant gastrostomy tube, no masses, no hepatosplenomegaly Ext: No edema, clubbing or cyanosis. Neuro: Alert and responsive, moving all 4 extremities on command, cranial nerves intact, no focal findings Skin: Intact no open lesions, no rash Course - Re-evaluation Re-evalutation: 09/07/20 18:40 Given IV fluids and labs were obtained. There were no remarkable abnormalities noted on the lab test and I discussed with the son the need to use gastrostomy tube to maintain hydration and also nutrition if the patient is having a difficult time taking food by mouth. Also encouraged to follow-up with the oncologist with regards to basic status. - Vital Signs Vital signs: Temp Pulse Resp BP Pulse Ox 97.6 F 82 16 126/75 H 97 09/07/20 13:07 09/07/20 13:07 09/07/20 17:01 09/07/20 17:01 09/07/20 15:33 - Laboratory Result Diagrams: 09/07/20 13:11 09/07/20 13:11 Laboratory results interpreted by me: 09/07/20 09/07/20 09/07/20 13:11 13:11 16:08 Hgb 9.6 L Hct 29.8 L MCV 78 L MCH 25.0 L RDW 19.0 H Potassium 3.2 L Carbon Dioxide 32 H BUN 34 H Glucose 131 H Creatine Kinase < 20 L Urine Protein 30 H Urine Ketones 20 H Urine Urobilinogen 2.0 H Ur Leukocyte Esterase SMALL H - Diagnostic Test Radiology reviewed: Image reviewed, Reports reviewed - EKG Interpretation by Me Rhythm: NSR - EKG interpreted by Dr. Quiles: Normal sinus rhythm, rate 82, NH interval 144 ms, QT interval 360ms, borderline right axis deviation, nonspecific T wave abnormality in the lateral leads,. Compared to EKG dated 06/20/2020 there are no acute interval changes. Interpretation Abnormal EKG Discharge - Discharge Clinical Impression: Generalized weakness, At risk for dehydration due to poor fluid intake Condition: Good Disposition: HOME, SELF-CARE Additional Instructions: You were seen in the emergency department today with generalized weakness related to poor intake. Given that you have a feeding tube it would be important to use the feeding tube for hydration and nutrition as needed. Please follow-up with your oncologist regarding your status and your primary care d octor regarding adjustments to the tube feedings. If your symptoms are worsening or if you have other concerns you may return to the emergency department for further evaluation and treatment HOME CARE INSTRUCTIONS & INFORMATION: Thank you for choosing us for your medical needs. We hope you're satisfied with the care you received. After you leave, you must properly care for your problem and, at the same time, observe its progress. Any condition can change. Some illnesses can change rapidly over hours or days. If your condition worsens, return to the Emergency Department or see your physician promptly. ABOUT YOUR X-RAYS AND EKG'S: If you had an EKG or X-rays taken, they have been read by the Emergency Physician. The X-rays and EKG's will also be read by a Radiologist or Animal Nutrition Teacher within 24 hours. If discrepancies are noted, you will be notified by telephone. Please be certain the ED has a correct telephone number & address where you can be reached. Also, realize that some fractures or abnormalities do not show up on initial X-rays. If your symptoms continue, see your physician. ABOUT YOUR LABORATORY TEST: If you had laboratory tests, the results have been reviewed by the Emergency Physician. Some test results (for example cultures) may not be available for several days. You will be contacted if any test result shows you need additional treatment. Please be certain the ED has a correct telephone number and address where you can be reached. ABOUT YOUR MEDICATIONS: You will receive instructions on how to take your medicine on the prescription label you receive. Additional information may be provided by the Pharmacy. If you have questions afterwards, call the ED for clarification or further instructions. Some prescribed medications may cause drowsiness. Do not perform tasks such as driving a car or operating machinery without consulting your Pharmacist. If you feel you need a refill of pain medication, your condition will need re-evaluation. Please do not call for a refill of any medication. ABOUT YOUR SIGNATURE: Signature of this document acknowledges to followin. Understanding that you received emergency treatment and that you may be released before al medical problems are known or treated. Please be certain the ED has a correct phone number & address where you can be reached. 2. Acknowledgement that you will arrange for follow-up care as recommended. 3. Authorization for the Emergency Physician to provide information to your follow-up Physician in order to maximize your care. AT ANY TIME, IF YOUR SYMPTOMS CHANGE SIGNIFICANTLY OR WORSEN OR YOU DEVELOP NEW SYMPTOMS, RETURN TO THE EMERGENCY DEPARTMENT IMMEDIATELY FOR RE-EVALUATION. OUR GOAL IS TO PROVIDE EXCELLENT MEDICAL CARE! WE HOPE THAT WE HAVE MET YOUR EXPECTATIONS DURING YOUR EMERGENCY DEPARTMENT VISIT AND THAT YOU FEEL YOU HAVE RECEIVED EXCELLENT CARE! Referrals: SHAYNE NELSON MD [Primary Care Provider] - Follow up as needed
[2020-09-07 19:10] VITALS: BP 133/77
== END 2020-09-07 19:10 | disposition home or self-care (01) ==
LOC: ER 12:43
DX: R53.1 Weakness (principal); Z93.1 Gastrostomy status; Z85.89 Personal history of malignant neoplasm of other organs and systems
CPT/HCPCS: 93005; 99284; 96360; 96361; 36415; 82553; 82550; 85025; 80053; 81001; 84484; 93010; J7030